=== PATIENT | male | born 1955 | race African-American/Black ===

== ENCOUNTER 2024-05-23 21:55 | Emergency (ER) | payer MEDICARE, OTHER ==
[~2024-05-23] VITALS: Ht 170.2 cm; Wt 80.3 kg
[2024-05-23 22:41] VITALS: O2SAT 98
[2024-05-24] MEDS ORDERED: LIDO700A15 TP (01:42)
[2024-05-24] MEDS ORDERED: NAPR-1176 MT (01:42)
[2024-05-24] MEDS: ACETAMINOPHEN 500MG TABLET PO ONE (02:00)
[2024-05-24 02:20] VITALS: BP 156/86; PULSE 80; RESP 16; TEMP 36.61404; O2SAT 98
== END 2024-05-24 02:22 | disposition home or self-care (01) ==
LOC: ER 21:55
DX: S43.101A Unspecified dislocation of right acromioclavicular joint, initial encounter (principal); S60.512A Abrasion of left hand, initial encounter; F41.9 Anxiety disorder, unspecified; E78.00 Pure hypercholesterolemia, unspecified; I10 Essential (primary) hypertension; W10.9XXA Fall (on) (from) unspecified stairs and steps, initial encounter; Y93.89 Activity, other specified; Y92.89 Other specified places as the place of occurrence of the external cause; Y99.8 Other external cause status
CPT/HCPCS: 73030; 99283; A4565